=== PATIENT | female | born 1995 | race Caucasian/White ===

== ENCOUNTER 2016-10-21 18:17 | Inpatient (IN) | payer BC, SELFPAY ==
[~2016-10-21] VITALS: Ht 165.1 cm; Wt 66.6 kg
--- NOTE | ~2016-10-21 | HP ---
PATIENT'S NAME: IZZY PRIETO [facility] AGE: 21 Y [address] ROOM: [id number] [place], [place] [address] LOCATION: [facility] [place] AD[place] DATE: 10/21/2016 History & Physical DISCHARGE DATE: FAMILY PHYSICIAN: Eber Hansen MD ATTENDING PHYSICIAN: Eber Hansen DATE OF SERVICE: CHIEF COMPLAINT: "I have abdominal pain." HISTORY OF PRESENT ILLNESS: Ms. Prieto is a 21-year-old female with an uncomplicated past medical history except for anxiety and depression, and previously taking Effexor, who presented as admission to [facility] from the [facility] Emergency Department for pancreatitis. The patient was in her usual state of health when she experienced a break-up with her boyfriend about two to three months ago. They had been dating for a year. She reported that she would drink alcohol about two nights a week or so prior to that. However, the patient did endorse drinking about eight or more hard alcoholic drinks per night, about five nights a week over the last few months. This led her to have significant abdominal pain in the epigastric region that started at about 1500 on the day of admission. The patient described it as an initially a dull pain that began to spread out underneath her ribcage. She was feeling nauseous. She had no vomiting. No other abdominal pain. No diarrhea or other significant symptoms at that time. Because of her symptoms, she did present to the Emergency Department for further evaluation and management. Upon reaching the ER, the patient had blood pressure of 129/74, pulse of 92, respirations of 18, temperature of 98.6, and oxygen saturations of 99% on room air. The patient was bolused with some IV fluids. She did receive Protonix IV as well as a GI cocktail without significant improvement. She also had Percocet without significant improvement. Finally, the patient did have some morphine 2 mg, which did significantly improve her pain. When I interviewed the patient, she was feeling pretty good. She actually was hungry, telling me that she had not eaten in a couple of days because of the pain. She was wondering about whether or not she could eat some food. Otherwise, she had no significant symptoms to report other than what was discussed previously in the HPI. REVIEW OF SYSTEMS: Negative except for those noted in the HPI. MEDICATION LIST: PATIENT'S NAME: [facility] AGE: 21 Y [address] ROOM: [address] [address] LOCATION: [facility] [place] ADMIT DATE: 10/21/2016 History & Physical DISCHARGE DATE: FAMILY PHYSICIAN: Eber Hanesn MD ATTENDING PHYSICIAN: Eber Hansen None. ALLERGIES: NONE. PAST MEDICAL HISTORY: 1. Depression. 2. Anxiety. 3. Alcohol abuse disorder, 2017. 4. Tobacco abuse disorder, 2017. PAST SURGICAL HISTORY: None. FAMILY HISTORY: The patient reports that both of her parents are alive and well. Her mother has renal failure and her father has asthma. Also, states that diabetes runs in the family remotely. No history of gallstones or gallbladder disease. No other gastrointestinal diagnoses. SOCIAL HISTORY: The patient is employed at [employer]. She works in the nighttime. She works late, and then will typically sleep during the day. As previously mentioned, the patient endorses about eight or more hard alcoholic beverages at least five nights a week. Additionally, she has been smoking 10 to 15 cigarettes per day. She has been doing that for years. Before that, she smoked less, but did start smoking at about age 14. PHYSICAL EXAMINATION: VITAL SIGNS: As reviewed in the HPI. GENERAL: A pleasant, interactive adult female, in no acute distress. HEAD: Normocephalic and atraumatic. EYES: Conjunctivae were clear. Sclerae were white. EARS, NOSE, AND THROAT: Mucous membranes are moist. HEART: Regular rate and rhythm without murmurs, rubs, clicks, or gallops. LUNGS: Clear to auscultation in all barreto bilaterally. ABDOMEN: Soft. There is no distention. The patient does have significant tenderness to palpation, particularly in the epigastric region. Additionally, she had some pain in the right upper and left upper quadrants. No rebound, rigidity, or guarding at this point in time. Bowel sounds are positive and active. EXTREMITIES: Warm and well perfused. No clubbing, cyanosis, or edema. SKIN: No rashes. NEUROLOGIC: Cranial nerves II through XII are grossly intact. No focal deficits were noted. PATIENT'S NAME: [facility] AGE: 21 Y [address] ROOM: [facility] [place], [place] [address] LOCATION: [facility] [place] ADMIT DATE: 10/21/2016 History & Physical DISCHARGE DATE: FAMILY PHYSICIAN: Eber Hansen MD ATTENDING PHYSICIAN: Eber Hansen LABORATORY AND IMAGING: As per HPI. IMPRESSION/REPORT/PLAN: A 21-year-old female with alcohol-induced pancreatitis. 1. Alcohol-induced pancreatitis: The patient has markedly elevated pancreatic enzymes. Her amylase is 142 and her lipase is 2969. She did have normal cardiac enzymes. Her acetaminophen and salicylates were also negative. She was not . Her urinalysis was overall unremarkable. She did not appear to be overly dehydrated on her metabolic panel. Her drug screen was also negative. Complete blood count showed a WBC of 13.4; otherwise, unremarkable. Ultimately, the patient was given some morphine. Initially, I did not want to put the patient on FUNNEL SETTER. However, we will initiate a fentanyl FUNNEL SETTER, and see if we can get her pain under good control. We will favor fentanyl over morphine because of sphincter of Oddi pressure that could be induced with morphine. Additionally, we will aggressively fluid hydrate her with another one liter bolus of normal saline. We will run at 150 mL/hr after that. She will be n.p.o. for now. We will check her enzymes again in the morning to see what they look like. Additionally, Dr. Crawford did do a bedside ultrasound, and did not see any stones. No obstruction of the common bile duct. We will formally take a look at the entire pancreas with a complete abdominal ultrasound here in the morning. We may consider CT scan if the patient is not getting better, to look for pseudocysts or other cause. However, I would like to avoid additional radiation in this young female patient if at all possible. 2. Alcohol abuse: The patient does have significant alcohol abuse in the form of binge drinking nearly nightly. We will watch for any sort of withdrawal. Additionally, we will have Dr. Hansen talk to the patient about a consideration of alcohol treatment, and see if she wants any resources while in hospital. They were not to offered her this evening acutely. 3. Tobacco abuse: The patient will be offered a nicotine patch while in hospital. 4. History of anxiety. 5. History of depression. The patient has been off her Effexor for some time just because of her lack of being able to have it covered by her insurance. According to her, the patient did not really want to take it in the first place, but could not tell me exactly why she did end up taking the medication. We will just closely watch her mood while in hospital. 6. Fluids: Normal saline at 150 mL/hr after normal saline 1 L bolus. 7. Electrolytes: Stable. Continue to monitor daily. 8. Nutrition: N.p.o. for now. PATIENT'S NAME: IZZY PRIETO [facility] AGE: 21 Y [address] ROOM: [address] [address] LOCATION: [facility] [place] ADMIT DATE: 10/21/2016 History & Physical DISCHARGE DATE: FAMILY PHYSICIAN: Eber Hansen MD ATTENDING PHYSICIAN: Eber Hansen 9. Disposition: The patient is going to be inpatient at this point in time. Dr. Hansen is in [facility]. As far as I understand, we will assume the patient's care after appropriate hand-off is being given in the morning. MD JASON AGUILAR/christiano /[id number] D: [id number] T: [id number] HISTORY & PHYSICAL
--- NOTE | ~2016-10-21 | ER ---
PAT[facility]'S [facility]: [facility] AGE: 21 Y [address] ROOM: [place] [address] [place] [facility] [place] DATE: 10/21/2016 ER/Outpatient Report DISCHARGE DATE: FAMILY PHYSICIAN: Eber Hansen MD ATTENDING PHYSICIAN: Eber Hansen Time of Patient's Arrival: 1817 hours. Time of Patient's Evaluation: 1830 hours. CHIEF COMPLAINT: Abdominal pain. HISTORY OF PRESENT ILLNESS: This is a 21-year-old female who presents to the ER with abdominal pain that started last night in kind of her mid epigastric area. She states that she felt like it felt like heartburn. She did take some Tums with no relief of her pain. She states now it has traveled down into her abdomen. She tried to eat something at work with no relief and states that it is getting worse. She states her pain does radiate into her back. She describes it as crampy and achy pain. She has never had anything like this before. She states she has been having a lot of stress lately, her boyfriend left her a couple of weeks ago and she stopped taking her antidepressant medication 10 days ago. The patient reports to drinking alcohol 5 days a week, 8+ drinks at a time. She states that she currently does not feel depressed or suicidal. She denies any other problems at this time. ALLERGIES: NO KNOWN ALLERGIES. MEDICATIONS: Please see medication list in nurse's notes. PAST MEDICAL HISTORY: Depression and anxiety. PAST SURGERIES: None. SOCIAL HISTORY: She does smoke cigarettes 10-15 a day for the last 7 years and she does drink alcohol 8+ drinks 5 days a week. REVIEW OF SYSTEMS: A 10-point review of systems was completed and was negative with the exception of those discussed in the HPI. PATIENT'S NAME: CONNER [facility] AGE: 21 Y [address] ROOM: [address] [address] LOC[place]: [facility] [place] DATE: 10/21/2016 ER/Outpatient Report DISCHARGE DATE: FAMILY PHYSICIAN: Eber Hansen MD ATTENDING PHYSICIAN: Eber Hansen PHYSICAL EXAMINATION: VITAL SIGNS: Weight 67 kg taken, blood pressure is 129/74, pulse 92, respirations 18, temperature 98.4 degrees tympanically, and saturation is 99% on room air. Izabella Coma Score is 15. GENERAL: Alert, calm, well-developed female, in moderate distress. HEENT: Head: Normocephalic. She does display moist mucous membranes. Eyes: Pupils are equal and reactive to light. NECK: Supple. No lymphadenopathy. LUNGS: Clear to auscultation bilaterally. No wheezes or crackles. HEART: Regular rate and rhythm. ABDOMEN: Soft. She does have guarding with palpation in her upper abdomen. She has hypoactive bowel sounds. No masses are palpated. She has no tenderness over her suprapubic area. SKIN: Warm, dry, and intact. NEURO: Cranial nerves 2 through 12 grossly intact. Gait is steady without assistance. LABORATORY DATA: CBC: White count is 13.4, hemoglobin is 11.9, platelets 307, and ANC is 9.3. INR is 0.96. CMS: Sodium 140, potassium 3.7. Liver enzymes are all normal. Total bilirubin is 0.7. Magnesium is 2.0. Alcohol level is less than 0.010. Amylase is 142, lipase is 2969, CPK is 64, CK-MB is 0.6, and troponin I is less than 0.040. Acetaminophen is less than 2.0. Salicylate is less than 2.8. Urine drug screen was negative. H. pylori was negative. Urinalysis was negative for any infection. Urine HCG was negative. EKG shows sinus rhythm. Chest x-ray was negative for any infiltrate. IMPRESSION: 1. Midepigastric abdominal pain due to pancreatitis. 2. Alcohol abuse. 3. History of anxiety and depression. ASSESSMENT AND PLAN: We initially gave the patient a GI cocktail p.o. and Protonix 40 mg p.o. This did not improve her pain at all; therefore, I did try oral pain medications with her Percocet 5/325 two of them by mouth. She also states that those did not help her pain. Once we got the labs back and confirmed pancreatitis, we did give her some morphine for her pain and some IV fluids. The patient states her primary care physician is Dr. Hansen; therefore, I called Dr. Riley who is teamcenter solution architect for [facility], and he will be coming in to admit the patient. The patient understands and agrees with care. PATIENT'S NAME: IZZY PRIETO [facility] AGE: 21 Y [address] ROOM: [place] [address] [place]: [facility] [place] DATE: 10/21/2016 ER/Outpatient Report DISCHARGE DATE: FAMILY PHYSICIAN: Eber Hansen MD ATTENDING PHYSICIAN: Eber Hansen PA-C FOR KYLE J RUPP, DO ACJ/modl /[id number] d: 10/22/160 t: 10/26/16 193, OUTPATIENT REPORT
--- NOTE | ~2016-10-21 | DS ---
PATIENT'S NAME: [facility] AGE: 21 Y [address] ROOM: [place] [address] [place] [facility] [place]: 10/21/2016 Discharge Summary DISCHARGE DATE: 10/24/2016 FAMILY PHYSICIAN: Eber Hansen MD ATTENDING PHYSICIAN: Eber Hansen DISCHARGE DIAGNOSES: 1. Pancreatitis. 2. Elevated liver enzymes. 3. Alcoholism. 4. Nicotine dependence. CONSULTS DURING ADMISSION: None. PROCEDURES DURING ADMISSION: None. HOSPITAL COURSE: The patient is a 21-year-old female, who presented to the emergency department with acute abdominal pain, was found to have elevated liver enzymes along with elevated pancreatic enzymes. The patient had imaging done which showed nothing acute going on with the liver or the gallbladder. The patient was placed n.p.o. along with fentanyl COMMISSARY PRODUCTION SUPERVISOR and high rate of IV fluids. The patient was weaned off the COMMISSARY PRODUCTION SUPERVISOR and started on clears and tolerated, and gradually went to a regular diet and tolerated it. Upon the day of discharge, patient was abdominal pain free, tolerating a regular diet, and her pancreatic enzymes were trending down. DISCHARGE CONDITION: Stable. DISPOSITION: Home. DISCHARGE MEDICATIONS: Please see list. DISCHARGE INSTRUCTIONS: The patient was told adamantly to abstain from any alcohol. She is to do a bland diet along with plenty of fluids. If all of a sudden she develops symptoms or any concerns, she is to contact clinic immediately. She is to follow up with Dr. Hansen in 2 weeks. MD NUHA CARRERA/modl [facility]: [facility]GE[facility] 21 Y [address] ROOM: [place] [address] [place] [facility] [place] DATE: 10/21/2016 Discharge Summary DISCHARGE DATE: 10/24/2016 FAMILY PHYSICIAN: Eber Hansen MD ATTENDING PHYSICIAN: Eber Hansen /[id number] d: 10/24/169 t: 10/26/16 1331, DISCHARGE SUMMARY
[2016-10-21 18:44] LABS: BILIRUBIN URINE NEGATIVE (NEGATIVE); BLOOD URINE 10 /UL (NEGATIVE); COLOR URINE YELLOW (YELLOW); GLUCOSE URINE NEGATIVE (NEGATIVE); KETONE URINE NEGATIVE (NEGATIVE); LEUKOCYTES URINE NEGATIVE /UL (NEGATIVE); NITRITE URINE NEGATIVE (NEGATIVE); PROTEIN URINE NEGATIVE (NEGATIVE); SPEC GRAVITY URINE 1.025 (1.003-1.035); TURBIDITY URINE CLEAR (CLEAR); UROBILINOGEN URINE NORMAL (NORMAL)
[2016-10-21 18:52] LABS: BASOPHIL # 0.1 K/uL (0.0-0.2); BASOPHIL % 0.4 %; EOSINOPHIL # 0.3 K/uL (0.0-0.5); EOSINOPHIL % 2.2 %; HEMATOCRIT 36.4 % (33.0-46.0); HEMOGLOBIN 11.9 g/dL (11.0-15.0); IMMATURE GRANULOCYTE % 0.3 %; LYMPHOCYTE # 2.7 K/uL (0.8-4.0); LYMPHOCYTE % 20.2 %; MCH 31.2 pg (27.0-34.0); MCHC 32.7 gm/dL (32.0-36.5); MCV 95.3 fl (83.0-98.0); MONOCYTE % 7.3 %; MPV 9.8 fl (9.4-12.4); NEUTROPHIL # (ANC) 9.3 K/uL (1.8-7.8); NEUTROPHIL % 69.6 %; NRBC % 0 /100WBC (0-0.00); PLATELET COUNT 307 K/uL (150-450); RBC 3.82 M/uL (3.50-5.00); WBC 13.4 K/uL (4.0-11.0)
[2016-10-21 18:57] LABS: BACTERIA URINE FEW (NEGATIVE); MUCUS URINE 3+ (NEGATIVE); RBC URINE RARE #/HPF (NEGATIVE)
[2016-10-21 19:00] LABS: INR - (THERAPEUTIC) 0.96 (0.92-1.07); PROTIME 10.1 SECONDS (9.8-11.4); PTT 25 SECONDS (25-32)
[2016-10-21 19:03] LABS: BARBITURATE NEGATIVE (NEGATIVE)
[2016-10-21 19:11] LABS: AMPHETAMINE NEGATIVE (NEGATIVE)
[2016-10-21 19:12] LABS: COCAINE NEGATIVE (NEGATIVE); OPIATES NEGATIVE (NEGATIVE)
[2016-10-21 19:12] LABS: ALBUMIN 3.5 gm/dL (3.5-5.0); ALK PHOS 76 IU/L (33-138); ALT 25 IU/L (12-78); ANION GAP 11.7 (10.0-19.0); AST 20 IU/L (10-40); BLOOD UREA NITROGEN 13 mg/dL (6-24); CALCIUM 8.6 mg/dL (8.5-10.5); CHLORIDE 105 mMol/L (96-110); CO2 27 mMol/L (22-32); CPK 64 IU/L (21-215); CREATININE 0.6 mg/dL (0.5-1.1); ESTIMATED GFR (MDRD EQUATION) > 60; POTASSIUM 3.7 mMol/L (3.7-5.1); SODIUM 140 mMol/L (135-145); TOTAL BILIRUBIN 0.7 mg/dL (0.0-1.5); TOTAL PROTEIN 6.6 g/dL (6.0-8.4)
[2016-10-21] MEDS ORDERED: XANAX0.5 MG PO (20:40)
[2016-10-21] MEDS ORDERED: BC POWDER PACK1 EACH PO (20:43)
--- NOTE | 2016-10-22 03:58 | NUR ---
Significant Event:pt is a/o x3. pt was anxious and tearful r/t realizing she was here because of her alcohol use. pt c/o pain to upper abdomen ratdiating to back. amalyse and lipase elevated.pt got 1000ml bolus and on first of 2 1000ml bags @ 150ml. iv to l hand. pt has fent net mobile developer, had 50mcg bolus then 10mcg demand only w/ 10 min lockout. pt only had 1 demand after the bolus. ciwa score was initially 3 due to pt emotional state regarding being here because of her drinking. pt was much calmer at second assessment and score was a 0. pt is a sba. Follow up:
[2016-10-22 05:15] LABS: ALBUMIN 2.8 gm/dL (3.5-5.0); ALK PHOS 68 IU/L (33-138); ALT 31 IU/L (12-78); ANION GAP 11.2 (10.0-19.0); AST 26 IU/L (10-40); BLOOD UREA NITROGEN 9 mg/dL (6-24); CALCIUM 7.5 mg/dL (8.5-10.5); CHLORIDE 111 mMol/L (96-110); CO2 25 mMol/L (22-32); CREATININE 0.5 mg/dL (0.5-1.1); ESTIMATED GFR (MDRD EQUATION) > 60; POTASSIUM 4.2 mMol/L (3.7-5.1); SODIUM 143 mMol/L (135-145); TOTAL BILIRUBIN 0.7 mg/dL (0.0-1.5); TOTAL PROTEIN 5.5 g/dL (6.0-8.4)
--- NOTE | 2016-10-22 12:37 | NUR ---
Introduced myself to patient and her mom and explained my role with the CM department. Patient lives here in [place] and has 2 roommates. 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 Her plan is to discharge to home once she is medically cleared. She wants to make sure that her pain is controlled before discharging though. She and her mom both deny patient having any discharge needs at this time. Mom lives in [place] but states she can be here as long as needed and/or patient can go to [place] with her. Will continue to follow and offer supports.
--- NOTE | 2016-10-22 15:31 | NUR ---
Significant event: Pt. amylase and lipase decreased since yesterday. Pt. A&Ox3, VSS, on RA. Fentanyl STORE ADMINISTRATOR at 10 mcg demand and 10 min lockout. CIWA has been 0. Independent in room. Refused to shower this AM. Remains NPO. Had ultrasound this morning. Pain in R)upper quadrant, rates up to an 8 at times. Patient napped on and off throughout day. Mother at bedside. IV to L)hand NS at 150/hr. Follow up: monitor ETCO2, encourage ambulation
--- NOTE | 2016-10-23 04:25 | NUR ---
Significant Event:PT IS A/O X3. CIWA SCORES HAVE BEEN 0. PAIN TO UPPER ABD. IV TO L HAND W/ NS@ 150 AND FENT POLICE DETECTIVE WITH 10MCG DEMAND ONLY W/ 10 MIN LOCKOUT. 11 DEMANDS AND 11 DELIVERED. PT IS NPO, UP IND IN ROOM, NEED TO ENCOURAGE TO AMBULATE. Follow up:MONITOR PAIN AND CIWA SCORE
[2016-10-23 09:04] LABS: BASOPHIL % 0.4 %; EOSINOPHIL # 0.2 K/uL (0.0-0.5); EOSINOPHIL % 1.8 %; HEMATOCRIT 35.8 % (33.0-46.0); HEMOGLOBIN 11.9 g/dL (11.0-15.0); IMMATURE GRANULOCYTE % 0.4 %; LYMPHOCYTE % 20.6 %; MCH 31.4 pg (27.0-34.0); MCHC 33.2 gm/dL (32.0-36.5); MCV 94.5 fl (83.0-98.0); MONOCYTE # 0.7 K/uL (0.0-1.0); MONOCYTE % 7.2 %; MPV 9.7 fl (9.4-12.4); NEUTROPHIL # (ANC) 6.8 K/uL (1.8-7.8); NEUTROPHIL % 69.6 %; NRBC % 0 /100WBC (0-0.00); PLATELET COUNT 274 K/uL (150-450); RBC 3.79 M/uL (3.50-5.00); RDW-CV 12.3 % (11.9-14.6); WBC 9.8 K/uL (4.0-11.0)
[2016-10-23 09:32] LABS: ALBUMIN 3.1 gm/dL (3.5-5.0); ALK PHOS 87 IU/L (33-138); ALT 37 IU/L (12-78); ANION GAP 16.8 (10.0-19.0); AST 25 IU/L (10-40); BLOOD UREA NITROGEN 7 mg/dL (6-24); CHLORIDE 107 mMol/L (96-110); CO2 20 mMol/L (22-32); CREATININE 0.5 mg/dL (0.5-1.1); ESTIMATED GFR (MDRD EQUATION) > 60; POTASSIUM 3.8 mMol/L (3.7-5.1); SODIUM 140 mMol/L (135-145); TOTAL PROTEIN 6.5 g/dL (6.0-8.4)
[2016-10-23 09:34] LABS: TOTAL BILIRUBIN 1.3 mg/dL (0.0-1.5)
--- NOTE | 2016-10-23 16:31 | NUR ---
Significant event: patient is alert and oriented. VSS. on room air. CORE INSERTER pump dc's at 0955.Started on protonix for some heartburn complaints. No complaints of abdominal pain. Reports a small bm this morning. Voiding good. Has ambulated in halls several times today. Has tolerated clear liquids. CIWA has been negative. Had shower today. Has IV to left hand with NS running at 75ml. Cooperative with cares.
--- NOTE | 2016-10-23 20:15 | NUR ---
Nurse caught me in the pate and stated patient had questioned her about whether or not I was going to see her today. I went into the patient's room and had a social visit with her. She indicates her mom had to go back to [place] to go to work, but patient was planning on going back home with her for a few days once discharged. She said that she is feeling much better, but wants to eat "real food" stating she is so hungry. She has her vehicle here at the hospital as she drove herself here. She will either drive herself home once discharged or will call a friend to come and pick her up. She has not other concerns or needs at this time.
[2016-10-24 05:21] LABS: BASOPHIL % 0.3 %; EOSINOPHIL # 0.3 K/uL (0.0-0.5); HEMATOCRIT 34.8 % (33.0-46.0); HEMOGLOBIN 11.7 g/dL (11.0-15.0); IMMATURE GRANULOCYTE % 0.2 %; LYMPHOCYTE # 2.8 K/uL (0.8-4.0); LYMPHOCYTE % 31.5 %; MCH 31.5 pg (27.0-34.0); MCHC 33.6 gm/dL (32.0-36.5); MCV 93.5 fl (83.0-98.0); MONOCYTE # 0.9 K/uL (0.0-1.0); MONOCYTE % 9.6 %; MPV 9.4 fl (9.4-12.4); NEUTROPHIL % 55.4 %; NRBC % 0 /100WBC (0-0.00); PLATELET COUNT 292 K/uL (150-450); RBC 3.72 M/uL (3.50-5.00); RDW-CV 12.4 % (11.9-14.6)
[2016-10-24 05:42] LABS: ALBUMIN 3.1 gm/dL (3.5-5.0); ALK PHOS 78 IU/L (33-138); ALT 37 IU/L (12-78); AST 24 IU/L (10-40); CALCIUM 8.4 mg/dL (8.5-10.5); CHLORIDE 109 mMol/L (96-110); CO2 25 mMol/L (22-32); CREATININE 0.6 mg/dL (0.5-1.1); ESTIMATED GFR (MDRD EQUATION) > 60; SODIUM 143 mMol/L (135-145); TOTAL PROTEIN 6.4 g/dL (6.0-8.4)
[2016-10-24 05:45] LABS: BLOOD UREA NITROGEN 3 mg/dL (6-24); TOTAL BILIRUBIN 0.5 mg/dL (0.0-1.5)
--- NOTE | 2016-10-24 05:48 | NUR ---
Significant Event: Pt up ad juan in room and pate. No c/o pain or nausea. Tolerated clear liquid diet and recieved order to advance diet. She tolerted pudding, toast and gram crackers. Put in a regular diet for breakfast and explained ordering process. CIWA negative. Would like to go home today. Follow up:
--- NOTE | 2016-10-24 16:25 | NUR ---
Discharge instructions reviewed with patient. She verbalizes understanding of all instructions. Reviewed all medications, f/u appt, when to call the doctor, etc. REfer to discharge instructions for details. All belongings sent with patient. Amb to front door.
== END 2016-10-24 11:45 | disposition disaster alternative care site (69) | DRG 440 ==
LOC: GMED 18:17 → GMSU 19:53
PROVIDERS: Family Medicine; Physician Assistant Medical; ADMIT Family Medicine
PROC: HZ2ZZZZ Detoxification Services for Substance Abuse Treatment (ICD-10-PCS; principal; 2016-10-22)
DX: K85.20 Alcohol induced acute pancreatitis without necrosis or infection (principal); F32.9 Major depressive disorder, single episode, unspecified; F10.20 Alcohol dependence, uncomplicated; F41.9 Anxiety disorder, unspecified; F17.210 Nicotine dependence, cigarettes, uncomplicated
CPT/HCPCS: G0480; J2270; J3010; J7030